=== PATIENT | female | born 1945 | race Caucasian/White ===

== ENCOUNTER 2019-05-03 21:53 | Emergency (ER) | payer MEDICARE | END 2019-05-03 22:29 | disposition home or self-care (01) | LOC: BURERS 21:53 | DX: R05 Cough (principal); R41.0 Disorientation, unspecified | CPT/HCPCS: 99283 ==

== ENCOUNTER 2021-07-27 11:33 | Emergency (ER) | payer MEDICARE, OTHER | END 2021-07-27 13:46 | disposition home or self-care (01) | LOC: BURERS 11:33 | DX: J30.9 Allergic rhinitis, unspecified (principal); I10 Essential (primary) hypertension ==

== ENCOUNTER 2022-06-19 16:44 | Emergency (ER) | payer MEDICARE, OTHER | END 2022-06-19 18:30 | disposition left against medical advice (07) | LOC: BURERS 16:44 | DX: R22.1 Localized swelling, mass and lump, neck (principal); I10 Essential (primary) hypertension; Z79.01 Long term (current) use of anticoagulants; Z79.899 Other long term (current) drug therapy | CPT/HCPCS: 99283 ==